=== PATIENT | male | born 1990 | race Caucasian/White ===

== ENCOUNTER → 2020-01-04 | Outpatient (CLI) | payer OTHER | LOC: RAD 08:55 | DX: N50.811 Right testicular pain (principal); N50.812 Left testicular pain ==

== ENCOUNTER 2020-10-22 05:46 | Emergency (ER) | payer SELFPAY ==
[2020-10-22 07:02] LABS: HEMATOCRIT 44.7 % (42.0-52.0); HEMOGLOBIN 14.9 g/dL (13.5-18.0); MEAN CELL VOLUME 84 fl (78-100); MEAN CORPUSCULAR HEMOGLOBIN 28 pg (27-31); MEAN CORPUSCULAR HGB CONC 33 g/dL (33-37); MEAN PLATELET VOLUME 9.8 fl (7.4-10.4); PLATELET COUNT 153 K/mm3 (130-400); RED BLOOD COUNT 5.31 M/mm3 (4.20-5.60); RED CELL DISTRIBUTION WIDTH 13.2 % (11.5-14.5); WHITE BLOOD COUNT 5.7 K/mm3 (4.8-10.8)
[2020-10-22 07:12] LABS: BAND 28 % (0-10); LYMPHOCYTE 8 % (20-51); MONOCYTE 8 % (3-10); NEUTROPHILS 55 % (42-75)
[2020-10-22 07:14] LABS: URINE APPEARANCE CLEAR; URINE BILIRUBIN NEGATIVE (NEGATIVE); URINE BLOOD TRACE (NEGATIVE); URINE COLOR YELLOW; URINE GLUCOSE NEGATIVE (NEGATIVE); URINE KETONE 2+ (NEGATIVE); URINE LEUKOCYTE ESTERASE NEGATIVE (NEGATIVE); URINE MUCUS PRESENT (NOT PRESENT); URINE NITRATE NEGATIVE (NEGATIVE); URINE PROTEIN(semi-quant) TRACE mg/dL (NEGATIVE); URINE UROBILINOGEN NORMAL (NORMAL)
[2020-10-22 07:35] LABS: ALBUMIN 4.3 g/dL (3.5-5.0); POTASSIUM 4.3 mmol/L (3.5-5.1); TOTAL PROTEIN 7.1 g/dL (6.4-8.3)
[2020-10-22 07:36] LABS: CALCIUM 8.8 mg/dL (8.3-10.5)
[2020-10-22 07:37] LABS: TOTAL BILIRUBIN 0.3 mg/dL (0.2-1.2)
[2020-10-22 09:19] VITALS: BP 108/67
== END 2020-10-22 09:25 | disposition home or self-care (01) ==
LOC: ED 05:46
PROVIDERS: Nurse Practitioner
DX: R05 Cough (principal); R50.9 Fever, unspecified; R51.9 Headache, unspecified; M79.10 Myalgia, unspecified site; R11.2 Nausea with vomiting, unspecified; Z20.828 Contact with and (suspected) exposure to other viral communicable diseases
CPT/HCPCS: J7030

== ENCOUNTER 2020-11-04 13:19 | Inpatient (IN) | payer SELFPAY ==
[~2020-11-04] VITALS: Ht 180.3 cm; Wt 92.8 kg
[2020-11-04 14:35] LABS: URINE COLOR YELLOW
[2020-11-04 14:36] LABS: URINE APPEARANCE CLEAR; URINE BILIRUBIN NEGATIVE (NEGATIVE); URINE BLOOD NEGATIVE (NEGATIVE); URINE GLUCOSE NEGATIVE (NEGATIVE); URINE KETONE NEGATIVE (NEGATIVE); URINE LEUKOCYTE ESTERASE NEGATIVE (NEGATIVE); URINE MUCUS PRESENT (NOT PRESENT); URINE NITRATE NEGATIVE (NEGATIVE); URINE PROTEIN(semi-quant) TRACE mg/dL (NEGATIVE); URINE UROBILINOGEN NORMAL (NORMAL); URINE WBC 0-1 /hpf (0-3)
[2020-11-04 15:05] LABS: HEMATOCRIT 46.9 % (42.0-52.0); HEMOGLOBIN 15.4 g/dL (13.5-18.0); MEAN CELL VOLUME 85 fl (78-100); MEAN CORPUSCULAR HEMOGLOBIN 28 pg (27-31); MEAN CORPUSCULAR HGB CONC 33 g/dL (33-37); MEAN PLATELET VOLUME 9.6 fl (7.4-10.4); PLATELET COUNT 205 K/mm3 (130-400); RED BLOOD COUNT 5.52 M/mm3 (4.20-5.60); RED CELL DISTRIBUTION WIDTH 12.8 % (11.5-14.5); WHITE BLOOD COUNT 12.8 K/mm3 (4.8-10.8)
[2020-11-04 15:15] LABS: ALBUMIN 4.2 g/dL (3.5-5.0); POTASSIUM 4.2 mmol/L (3.5-5.1)
[2020-11-04 15:16] LABS: CALCIUM 9.3 mg/dL (8.3-10.5)
[2020-11-04 15:18] LABS: TOTAL PROTEIN 7.6 g/dL (6.4-8.3)
[2020-11-04 15:19] LABS: TOTAL BILIRUBIN 0.7 mg/dL (0.2-1.2)
[2020-11-04 15:20] LABS: BAND 2 % (0-10); LYMPHOCYTE 8 % (20-51); MONOCYTE 3 % (3-10); NEUTROPHILS 85 % (42-75)
[2020-11-04 15:59] LABS: ERYTHROCYTE SEDIMENTATION RATE 4 mm/hr (0-15)
[2020-11-04 17:41] VITALS: BP 103/53
[2020-11-04 18:38] VITALS: BP 103/53
--- NOTE | 2020-11-04 19:20 | NUR ---
Verbal order from Akosua PINA to give patient IVF bolus 1000mls if SBP <90 and notify network solutions architect [employer] GRADER.
[2020-11-04 21:08] VITALS: BP 97/47
--- NOTE | 2020-11-04 21:10 | NUR ---
Patient up to the bathroom to void and back to bed. Reports some right low back achyness, skin flushed and running low grade temperature. Offered tylenol and given. Rests back in bed. Denies dizziness at this time. Alert and oriented x 4. Denies shortness of breath or couph.
[2020-11-05 01:38] VITALS: BP 96/48
--- NOTE | 2020-11-05 01:39 | NUR ---
Patient awake and more ice water given. States "I'm feeling alright". See vitals.
--- NOTE | 2020-11-05 02:20 | NUR ---
New bag IVF's hung. Patient denies back pain at this time.
[2020-11-05 04:38] VITALS: BP 124/69
--- NOTE | 2020-11-05 05:30 | NUR ---
Patients covid send out test negative and reported to patient-no longer in isolation. Patient reports "hearing all good things this morning". Denies needs. See vitals.
[2020-11-05 06:39] LABS: EOS # 0.4 (0.04-0.40); HEMATOCRIT 38.8 % (42.0-52.0); HEMOGLOBIN 12.5 g/dL (13.5-18.0); LYMPH# 1.2 (1.50-4.00); MEAN CELL VOLUME 86 fl (78-100); MEAN CORPUSCULAR HEMOGLOBIN 28 pg (27-31); MEAN CORPUSCULAR HGB CONC 32 g/dL (33-37); MEAN PLATELET VOLUME 9.5 fl (7.4-10.4); MONO # 0.8 (0.20-0.80); NEU # 5.2 (1.40-6.50); PLATELET COUNT 203 K/mm3 (130-400); RED BLOOD COUNT 4.52 M/mm3 (4.20-5.60); RED CELL DISTRIBUTION WIDTH 12.8 % (11.5-14.5); WHITE BLOOD COUNT 7.6 K/mm3 (4.8-10.8)
--- NOTE | 2020-11-05 06:48 | NUR ---
Patient reports eyes hurting, headache and "body just sore". Tylenol given.
[2020-11-05 07:01] LABS: ALBUMIN 3.3 g/dL (3.5-5.0)
[2020-11-05 07:02] LABS: CALCIUM 8.1 mg/dL (8.3-10.5)
[2020-11-05 07:03] LABS: TOTAL PROTEIN 5.7 g/dL (6.4-8.3)
[2020-11-05 07:05] LABS: TOTAL BILIRUBIN 0.8 mg/dL (0.2-1.2)
[2020-11-05 07:12] LABS: EOS % 5.8 % (0.0-4.0)
--- NOTE | 2020-11-05 09:35 | NUR ---
PT IS RESTING COMFORTABLY IN BED. THE PT IS ALERT AND ORIENTED AND RESPIRATIONS ARE EVEN AND UNLABORED. THE PT DENIES ANY PAIN AND STATES "I FEEL MUCH BETTER THIS MORNING."
[2020-11-05 09:46] VITALS: BP 124/71
[2020-11-05 13:29] VITALS: BP 107/65
--- NOTE | 2020-11-05 14:29 | NUR ---
First visit from the accounts receivable supervisor. prayed with patient. No other needs right now.
[2020-11-05 17:06] VITALS: BP 109/54
--- NOTE | 2020-11-05 19:00 | NUR ---
Report received from Silvia STEELE. Explained to patient he is to be NPO from now until gallbladder ultrasound in am. UA obtained. Patient was resting in bed watching basketball.
--- NOTE | 2020-11-05 20:10 | NUR ---
Patient sitting up in bed watching TV. Denies pain. Urostomy draining clear yellow urine. HS meds reviewed and given.
[2020-11-05 22:11] VITALS: BP 107/73
--- NOTE | 2020-11-05 22:18 | NUR ---
Patient rests in bed watching TV. Denies pain. States he feels pretty good. Afebrile.
--- NOTE | 2020-11-06 02:00 | NUR ---
Patient awakened for vitals. Denies needs other than would like water but is NPO.
[2020-11-06 02:11] VITALS: BP 110/67
--- NOTE | 2020-11-06 05:25 | NUR ---
Awakened for vitals. Has been afebrile and has denied pain.
[2020-11-06 05:57] VITALS: BP 114/72
--- NOTE | 2020-11-06 06:50 | NUR ---
Report received from IVETTE Acuña.
[2020-11-06 08:01] LABS: ALBUMIN 3.4 g/dL (3.5-5.0); POTASSIUM 4.1 mmol/L (3.5-5.1)
[2020-11-06 08:02] LABS: CALCIUM 8.3 mg/dL (8.3-10.5)
[2020-11-06 08:03] LABS: TOTAL PROTEIN 6.1 g/dL (6.4-8.3)
[2020-11-06 08:05] LABS: TOTAL BILIRUBIN 0.3 mg/dL (0.2-1.2)
[2020-11-06 08:22] LABS: EOS # 0.3 (0.04-0.40); HEMATOCRIT 38.5 % (42.0-52.0); HEMOGLOBIN 12.9 g/dL (13.5-18.0); LYMPH# 1.8 (1.50-4.00); MEAN CELL VOLUME 86 fl (78-100); MEAN CORPUSCULAR HEMOGLOBIN 29 pg (27-31); MEAN CORPUSCULAR HGB CONC 34 g/dL (33-37); MEAN PLATELET VOLUME 9.9 fl (7.4-10.4); MONO # 0.5 (0.20-0.80); NEU # 1.8 (1.40-6.50); PLATELET COUNT 189 K/mm3 (130-400); RED BLOOD COUNT 4.46 M/mm3 (4.20-5.60); RED CELL DISTRIBUTION WIDTH 12.6 % (11.5-14.5); WHITE BLOOD COUNT 4.4 K/mm3 (4.8-10.8)
--- NOTE | 2020-11-06 08:31 | NUR ---
PATIENT TAKEN OFF NPO FOR ULTRASOUND. US TECH IS NOT IN TODAY AND WILL EITHER NEED TO RESCHEDULE FOR OUTPATIENT OR CANCEL THE ORDER. MARIELOS THE PROVIDER IS UPDATED AND BREAKFAST IS ORDERED AND GIVEN TO THE PATIENT WITH THE UPDATE THAT THE US WAS CANCELLED FOR TODAY AND THAT THE PROVIDER WILL BE IN TO VISIT WITH HIM.
--- NOTE | 2020-11-06 08:38 | NUR ---
MARIELOS IN WITH PATIENT.
[2020-11-06] MEDS ORDERED: CEFDINIR300 MG PO (08:44)
--- NOTE | 2020-11-06 09:49 | NUR ---
Pt to be discharged home today. Went over discharged paperwork and provided a copy. Pt encouraged to take first dose of Cefdinir this morning when he picks it up. Pt instructioned to finish entire course of antibiotic even starts to feel better. Pt verblized understanding of instructions and denies any questions or concerns. Pt with all pt belongs.
== END 2020-11-06 09:55 | disposition home or self-care (01) | DRG 872 ==
LOC: ED 13:19 → MED/SURG 17:29
PROVIDERS: Physician Assistant; ADMIT Physician Assistant
DX: A41.9 Sepsis, unspecified organism (principal); N12 Tubulo-interstitial nephritis, not specified as acute or chronic; N39.0 Urinary tract infection, site not specified; M79.10 Myalgia, unspecified site; E86.0 Dehydration; Z20.828 Contact with and (suspected) exposure to other viral communicable diseases
CPT/HCPCS: C9113; J0696; J1650; J1885; J7030; Q9967